=== PATIENT | male | born 1940 | race Two or more races ===

== ENCOUNTER 2024-05-14 10:30 | Emergency (ER) | payer MEDICARE, SELFPAY ==
--- NOTE | 2024-05-14 | ECG_ITS ---
Test Reason : cp Blood Pressure : */* mmHG Vent. Rate : 65 BPM Atrial Rate : * BPM P-R Int : * ms QRS Dur : 118 ms QT Int : 468 ms P-R-T Axes : * -61 54 degrees QTcB Int : 486 ms Poor data quality Normal sinus rhythm Incomplete right bundle branch block Left anterior fascicular block Abnormal ECG No previous ECGs available Repeat EKG with better baseline Referred By: Generic ED Physician Electronically Signed By: KENYA RICHARD MD
[2024-05-14 10:35] VITALS: PULSE 68; O2SAT 99
[2024-05-14 10:48] VITALS: BP 104/38; PULSE 68; RESP 32; TEMP 36.7; O2SAT 99; BMI 24.3
--- NOTE | 2024-05-14 11:16 | ED.AMS ---
HPI - Altered Mental Status General Chief Complaint: Altered Mental Status Stated Complaint: CP, DIALYSIS Time Seen by Provider: 05/14/24 11:07 Source: EMS Mode of arrival: EMS Limitations: altered mental status History of Present Illness ED Provider: HPI narrative: Patient with history of end-stage renal disease on hemodialysis every other day was going for dialysis brought by EMS as while taking him to dialysis with a noticed more confused? Questionable chest pain what on arrival patient did not have any chest vitals were stable denies any complaint Related Data Allergies Allergy/AdvReac Type Severity Reaction Status Date / Time aspirin Allergy Unknown Verified 05/14/24 10:49 Review of Systems Review of Systems: Yes Unobtainable due to mental status PMFSH Past Medical History Medical History (Updated 05/14/24 @ 12:31 by Joesph Rojas MD) End stage renal disease Social History Social History Advance Directives: Yes Advance Directives on File: No Do you have a plan to hurt others: No Plan Physical Exam ED Vital Signs: Vital Signs - 24 hr 05/14/24 10:48 05/14/24 12:32 Temperature 98.1 F Pulse Rate 68 65 Respiratory Rate 32 H 14 Blood Pressure 104/38 L 98/41 L Pulse Oximetry 99 100 Oxygen Delivery Method Room Air Room Air BMI result Body Mass Index 24.3 Appearance: Alert. Confused oriented only x2. No acute distress. Eyes: No pallor or icterus ENT: Pharynx normal. Oral Mucosa moist Neck: Normal inspection. Neck supple. CVS: Normal heart rate and rhythm. Pulses normal. Respiratory: No respiratory distress. Equal air entry bilateral, no wheezing/rales/rhonchi Shiley catheter right side Abdomen: Soft and nontender. Bowel sounds are present, no mass palpable, no CVA tenderness Skin: Skin warm and dry. Normal skin color. Normal skin turgor. Extremities: No lower extremity edema. No calf tenderness Neuro: Oriented X 2. Left hemiparesis left AK Medical Decision Making Medical Decision Making MDM Narrative: Case discussed in detail with patient's daughter phone number [phone] patient was at [facility] for about 2 weeks discharge on 05/12/2024 right foot infecion and stump infection getting dialysis Thursday and Thursday we did the face time with daughter no change in mental status was noted patient was at his baseline denies any pain vitals are stable will send him to dialysis EKG without any ischemic changes according to daughter who saw him prior to sending for dialysis patient looks same as before Independent Interpretation I performed an independent interpretation of an: EKG Interpretation: Normal sinus rhythm heart rate 65 beats per minute normal interval normal axis no acute ST-T changes no acute ischemia Discharge Plan Discharge Clinical Impression: End stage renal disease on dialysis Patient Disposition: Xfer Other Transfer Details: [facility] @[facility], [address], [place],[phone] Instructions: End Stage Kidney Disease (ED) Referrals: Gurpreet Mcgill MD [Primary Care Provider] - Discharge Date/Time: 05/14/24 13:00 Print Language: Samoan
--- NOTE | 2024-05-14 11:48 | PC.NURSE ---
Kellie daughter HCP [phone]. Patient lives with her. Daughter states he was d/c from [facility] a day and half ago for stroke and infection he had a 2 week admission stay. Patient was d/c home with daughter and services. Pt recieves jake haider at [facility].
[2024-05-14 12:32] VITALS: BP 98/41; PULSE 65; RESP 14; O2SAT 100
== END 2024-05-14 13:00 | disposition other institution (70) ==
PROVIDERS: Emergency Provider Internal Medicine; PCP Pediatrics
DX: N18.6 End stage renal disease (principal); Z99.2 Dependence on renal dialysis; I45.10 Unspecified right bundle-branch block
CPT/HCPCS: 93005; 99283

== ENCOUNTER → 2024-05-14 10:49 | Outpatient (BNV) | payer MEDICARE, SELFPAY | PROVIDERS: Emergency Provider Internal Medicine; PCP Pediatrics; Visit Provider Internal Medicine Cardiovascular Disease | DX: I45.2 Bifascicular block (principal) | CPT/HCPCS: 93010 ==